=== PATIENT | male | born 1995 | race Caucasian/White ===

== ENCOUNTER 2020-12-30 14:25 | Emergency (ER) | payer OTHER ==
[2020-12-30 14:30] VITALS: TEMP 98.2; BMI 25.4
[2020-12-30] MEDS ORDERED: METOCLOPRAMIDE HCL INJECTION 10 MG/2 ML VIAL IVPUSH ONE (15:10)
[2020-12-30] MEDS ORDERED: SODIUM CHLORIDE 1,000 ML IV STA (15:10)
[2020-12-30 15:52] LABS: BASO % 0.6 % (0-2.0); EOS % 0.4 % (0-4.5); HEMATOCRIT 46.7 % (35.4-49); HEMOGLOBIN 16.1 GM/dL (11.7-16.9); LYMPH % 20.8 % (8-40); MCH 29.6 pg (25.7-33.7); MCHC 34.5 g/dl (32.0-35.9); MEAN CELL VOLUME 85.9 fl (80-96); MEAN PLT VOLUME 9.2 fl (7.5-11.1); MONO % 8.3 % (3.8-10.2); NEUT % 69.9 % (42.8-82.8); PLATELET COUNT 193 K/MM3 (134-434); RBC 5.43 M/mm3 (4.00-5.60); WHITE BLOOD COUNT 8.9 K/mm3 (4.0-10.0)
[2020-12-30 17:25] LABS: URINE APPEARANCE CLEAR; URINE BILIRUBIN NEGATIVE (NEGATIVE); URINE COLOR YELLOW; URINE GLUCOSE (UA) NEGATIVE (NEGATIVE); URINE KETONE NEGATIVE (NEGATIVE); URINE LEUK ESTERASE NEGATIVE (NEGATIVE); URINE NITRITE NEGATIVE (NEGATIVE); URINE PROTEIN NEGATIVE (NEGATIVE); URINE UROBILINOGEN 0.2 mg/dL (0.2-1.0)
[2020-12-30 17:30] VITALS: BP 112/70; PULSE 79
== END 2020-12-30 17:44 | disposition home or self-care (01) ==
LOC: JER 14:25
PROC: 3E033NZ Introduction of Analgesics, Hypnotics, Sedatives into Peripheral Vein, Percutaneous Approach (ICD-10-PCS; principal; 2020-12-30)
PROC: 3E033GC Introduction of Other Therapeutic Substance into Peripheral Vein, Percutaneous Approach (ICD-10-PCS; 2020-12-30)
PROC: 3E0337Z Introduction of Electrolytic and Water Balance Substance into Peripheral Vein, Percutaneous Approach (ICD-10-PCS; 2020-12-30)
DX: H81.10 Benign paroxysmal vertigo, unspecified ear (principal)
CPT/HCPCS: 36415; 81003; 85025; 93005; 93010; 99285-25

== ENCOUNTER 2023-10-12 23:53 | Observation (INO) | payer OTHER ==
[2023-10-13] MEDS ORDERED: ACETAMINOPHEN INJECTION 100 ML IVPB ONE (01:32)
[2023-10-13] MEDS ORDERED: ONDANSETRON 4 MG/2 ML VIAL ONE (01:33)
[2023-10-13] MEDS ORDERED: FAMOTIDINE 20 MG/50 ML IVPB 20 MG/50 ML MG IVPB ONE (01:33)
[2023-10-13] MEDS: ACETAMINOPHEN 1000 MG/100 ML BAG IVPB ONE (01:40)
[2023-10-13] MEDS: LACTATED RINGERS SOLUTION 1000 ML INFUS.BAG IV ONE ×2 (01:40→05:38)
[2023-10-13] MEDS: ONDANSETRON 4 MG/2 ML VIAL IVPUSH ONE (01:40)
[2023-10-13] MEDS: FAMOTIDINE 20 MG/50 ML IVPB 20 MG/50 ML MG IVPB ONE (01:52)
[2023-10-13 02:05] LABS: BASO % 0.3 % (0-2.0); EOS % 0.5 % (0-4.5); HEMATOCRIT 53.8 % (35.4-49); HEMOGLOBIN 18.9 GM/dL (11.7-16.9); LYMPH % 16.5 % (8-40); MCH 29.6 pg (25.7-33.7); MCHC 35.1 g/dl (32.0-35.9); MEAN CELL VOLUME 84.3 fl (80-96); MEAN PLT VOLUME 8.9 fl (7.5-11.1); MONO % 8.2 % (3.8-10.2); NEUT % 74.5 % (42.8-82.8); PLATELET COUNT 275 10^3/uL (134-434); RBC 6.38 M/mm3 (4.00-5.60); RDW 13.3 % (11.9-15.9); WHITE BLOOD COUNT 16.4 K/mm3 (4.0-10.0)
[2023-10-13 02:08] LABS: EPI CELLS 6 /uL (0-25.1); HYALINE CASTS 1 /uL (0-3.1); PH,URINE 7.5 (5.0-8.0); URINE APPEARANCE CLEAR; URINE BACTERIA 7 /uL (0-1359); URINE BILIRUBIN 1+ (NEGATIVE); URINE COLOR ORANGE; URINE GLUCOSE (UA) NEGATIVE (NEGATIVE); URINE KETONE TRACE (NEGATIVE); URINE LEUK ESTERASE TRACE (NEGATIVE); URINE NITRITE NEGATIVE (NEGATIVE); URINE PROTEIN 1+ (NEGATIVE); URINE RBC 30 /uL (0-23.9); URINE WBC 6 /uL (0-25.8)
[2023-10-13 02:25] LABS: POTASSIUM 4.9 mmol/L (3.5-5.1)
[2023-10-13 02:27] LABS: ALBUMIN 4.6 g/dl (3.4-5.0); CALCIUM 10.3 mg/dL (8.5-10.1)
[2023-10-13 02:28] LABS: BLOOD UREA NITROGEN 14.9 mg/dL (7-18)
[2023-10-13 02:30] LABS: CREATININE 1.3 mg/dL (0.55-1.3)
[2023-10-13 02:32] LABS: BILIRUBIN,TOTAL 2.2 mg/dL (0.2-1); TOT PROT 8.5 g/dl (6.4-8.2)
[2023-10-13 05:17] LABS: BILIRUBIN,DIRECT 0.4 mg/dL (0.0-0.2)
[2023-10-13 07:11] VITALS: BMI 29.9
[2023-10-13] MEDS: LACTATED RINGERS SOLUTION 1,000 ML/1,000 ML INFUS.BAG IV SCH (08:34)
[2023-10-13 08:52] LABS: POTASSIUM 4.4 mmol/L (3.5-5.1)
[2023-10-13 08:54] LABS: CALCIUM 9.3 mg/dL (8.5-10.1)
[2023-10-13 08:55] LABS: BLOOD UREA NITROGEN 15.8 mg/dL (7-18); MAGNESIUM 2.1 mg/dL (1.8-2.4)
[2023-10-13 08:57] LABS: PHOSPHOROUS 4.5 mg/dL (2.5-4.9)
[2023-10-13 08:58] LABS: CREATININE 1.3 mg/dL (0.55-1.3)
[2023-10-13 08:59] LABS: BILIRUBIN,TOTAL 1.8 mg/dL (0.2-1); TOT PROT 6.7 g/dl (6.4-8.2)
[2023-10-13 09:01] LABS: ALBUMIN 3.5 g/dl (3.4-5.0)
[2023-10-13] MEDS: FAMOTIDINE 20 MG TABLET PO SCH (09:17)
[2023-10-13 10:29] LABS: BASO % 0.4 % (0-2.0); EOS % 0.8 % (0-4.5); HEMATOCRIT 44.6 % (35.4-49); HEMOGLOBIN 15.4 GM/dL (11.7-16.9); LYMPH % 21.6 % (8-40); MCH 29.4 pg (25.7-33.7); MCHC 34.5 g/dl (32.0-35.9); MEAN CELL VOLUME 85.4 fl (80-96); MEAN PLT VOLUME 9.3 fl (7.5-11.1); MONO % 8.7 % (3.8-10.2); NEUT % 68.5 % (42.8-82.8); PLATELET COUNT 215 10^3/uL (134-434); RBC 5.22 M/mm3 (4.00-5.60); RDW 13.2 % (11.9-15.9); RETICULOCYTES 2.46 % (0.5-1.5); WHITE BLOOD COUNT 13.7 K/mm3 (4.0-10.0)
[2023-10-13] MEDS: PANTOPRAZOLE 40 MG TABLET PO SCH (13:38)
[2023-10-13] MEDS: HEPARIN NA (PORCINE) 5,000 UNITS/ML 1ML VIAL SQ SCH (13:38)
[2023-10-14] MEDS: ACETAMINOPHEN 500 MG TABLET (FP) PO ONE (02:20)
[2023-10-14] MEDS: ONDANSETRON 4 MG/2 ML VIAL IVPUSH PRN (02:57)
[2023-10-14 05:53] VITALS: PULSE 84
[2023-10-14 07:49] LABS: BASO % 0.3 % (0-2.0); EOS % 1.1 % (0-4.5); HEMATOCRIT 44.4 % (35.4-49); HEMOGLOBIN 15.6 GM/dL (11.7-16.9); LYMPH % 25.2 % (8-40); MCHC 35.2 g/dl (32.0-35.9); MEAN CELL VOLUME 85.2 fl (80-96); MEAN PLT VOLUME 8.7 fl (7.5-11.1); MONO % 8.2 % (3.8-10.2); NEUT % 65.2 % (42.8-82.8); PLATELET COUNT 198 10^3/uL (134-434); RBC 5.21 M/mm3 (4.00-5.60); RDW 12.8 % (11.9-15.9); WHITE BLOOD COUNT 8.5 K/mm3 (4.0-10.0)
[2023-10-14 07:58] LABS: POTASSIUM 4.5 mmol/L (3.5-5.1)
[2023-10-14 08:03] LABS: CALCIUM 8.9 mg/dL (8.5-10.1)
[2023-10-14 08:04] LABS: ALBUMIN 3.6 g/dl (3.4-5.0); BLOOD UREA NITROGEN 7.6 mg/dL (7-18); MAGNESIUM 2.2 mg/dL (1.8-2.4)
[2023-10-14 08:06] LABS: CHOLESTEROL 153 mg/dL (50-200); CREATININE 1.1 mg/dL (0.55-1.3)
[2023-10-14 08:07] LABS: BILIRUBIN,DIRECT 0.3 mg/dL (0.0-0.2); LDL CHOLESTEROL (ONLY SJRH) 101 mg/dL (5-100)
[2023-10-14 08:08] LABS: BILIRUBIN,TOTAL 1.6 mg/dL (0.2-1); TOT PROT 6.6 g/dl (6.4-8.2)
[2023-10-14 08:09] LABS: HDL CHOLESTEROL 39 mg/dL (40-60)
[2023-10-14 14:23] VITALS: BP 124/74; RESP 20; TEMP 98.1
== END 2023-10-14 16:01 | disposition home or self-care (01) ==
LOC: JER 23:53 → JERBED 10-13 04:42 → J7W 10-13 05:53
PROVIDERS: ADMIT Internal Medicine; ATTEND Internal Medicine
PROC: 3E033NZ Introduction of Analgesics, Hypnotics, Sedatives into Peripheral Vein, Percutaneous Approach (ICD-10-PCS; principal; 2023-10-13)
PROC: 3E033GC Introduction of Other Therapeutic Substance into Peripheral Vein, Percutaneous Approach (ICD-10-PCS; 2023-10-13)
PROC: 3E0337Z Introduction of Electrolytic and Water Balance Substance into Peripheral Vein, Percutaneous Approach (ICD-10-PCS; 2023-10-13)
PROC: 3E033GC Introduction of Other Therapeutic Substance into Peripheral Vein, Percutaneous Approach (ICD-10-PCS; 2023-10-13)
DX: E86.0 Dehydration (principal); R19.7 Diarrhea, unspecified; R74.01 Elevation of levels of liver transaminase levels; K76.0 Fatty (change of) liver, not elsewhere classified; F41.9 Anxiety disorder, unspecified; K21.9 Gastro-esophageal reflux disease without esophagitis; R11.2 Nausea with vomiting, unspecified
CPT/HCPCS: 0241U-QW; 36415; 76705-TC; 80053; 80061; 81003; 82248; 83010; 83615; 83690; 83735; 84100; 85025; 85045; 86704; 86709; 86803; 87045; 87046; 87086; 87340; 87517; 93005; 93010; 99285-25; G0378; J0131; J1644

== ENCOUNTER 2024-01-08 13:54 | Emergency (ER) | payer OTHER ==
[2024-01-08 14:04] VITALS: BP 125/65; PULSE 106; RESP 16; TEMP 98.4; BMI 25.0
[2024-01-08] MEDS ORDERED: IBUPROFEN 600 MG TABLET (FP) PO ONE (15:42)
[2024-01-08] MEDS: IBUPROFEN 600 MG TABLET (FP) PO ONE (15:46)
== END 2024-01-08 15:53 | disposition home or self-care (01) ==
LOC: JERFT 13:54
DX: M54.2 Cervicalgia (principal); W22.8XXA Striking against or struck by other objects, initial encounter
CPT/HCPCS: 99283-25

== ENCOUNTER 2024-03-04 10:38 | Emergency (ER) | payer OTHER ==
[2024-03-04 10:50] VITALS: BMI 23.6
[2024-03-04] MEDS ORDERED: METOCLOPRAMIDE HCL INJECTION 10 MG/2 ML VIAL ONE (11:46)
[2024-03-04] MEDS: METOCLOPRAMIDE HCL INJECTION 10 MG/2 ML VIAL IVPB ONE (11:54)
[2024-03-04] MEDS: SODIUM CHLORIDE 0.9% 500 ML INFUS.BAG IV ONE ×2 (11:54→13:54)
[2024-03-04] MEDS: ONDANSETRON 4 MG/2 ML VIAL IVPUSH ONE ×2 (11:54→13:54)
[2024-03-04 12:07] LABS: BASO % 0.2 % (0-2.0); EOS % 0.2 % (0-4.5); HEMATOCRIT 45.6 % (35.4-49); LYMPH % 9.2 % (8-40); MCH 29.5 pg (25.7-33.7); MEAN CELL VOLUME 84.1 fl (80-96); MONO % 4.8 % (3.8-10.2); NEUT % 85.6 % (42.8-82.8); PLATELET COUNT 177 10^3/uL (134-434); RBC 5.42 M/mm3 (4.00-5.60); RDW 13.2 % (11.9-15.9); WHITE BLOOD COUNT 10.6 K/mm3 (4.0-10.0)
[2024-03-04 12:24] LABS: POTASSIUM 3.5 mmol/L (3.5-5.1)
[2024-03-04 12:26] LABS: ALBUMIN 4.3 g/dl (3.4-5.0); BLOOD UREA NITROGEN 16.3 mg/dL (7-18); CALCIUM 9.4 mg/dL (8.5-10.1)
[2024-03-04 12:30] LABS: CREATININE 1.2 mg/dL (0.55-1.3)
[2024-03-04 12:31] LABS: BILIRUBIN,TOTAL 1.2 mg/dL (0.2-1); TOT PROT 7.3 g/dl (6.4-8.2)
[2024-03-04 13:16] LABS: URINE APPEARANCE CLEAR; URINE BILIRUBIN NEGATIVE (NEGATIVE); URINE COLOR YELLOW; URINE GLUCOSE (UA) NEGATIVE (NEGATIVE); URINE KETONE NEGATIVE (NEGATIVE); URINE LEUK ESTERASE NEGATIVE (NEGATIVE); URINE NITRITE NEGATIVE (NEGATIVE); URINE PROTEIN NEGATIVE (NEGATIVE); URINE UROBILINOGEN 0.2 mg/dL (0.2-1.0)
[2024-03-04] MEDS ORDERED: MECLIZINE HCL 25 MG TABLET (FP) ONE (13:41)
[2024-03-04] MEDS: MECLIZINE HCL 25 MG TABLET (FP) PO ONE (13:49)
[2024-03-04] MEDS ORDERED: ONDANSETRON 4 MG/2 ML VIAL ONE (13:52)
[2024-03-04 15:22] VITALS: BP 127/76; PULSE 79; RESP 17; TEMP 98.6
== END 2024-03-04 16:16 | disposition home or self-care (01) ==
LOC: JER 10:38
PROC: 3E033GC Introduction of Other Therapeutic Substance into Peripheral Vein, Percutaneous Approach (ICD-10-PCS; principal; 2024-03-04)
PROC: 3E033GC Introduction of Other Therapeutic Substance into Peripheral Vein, Percutaneous Approach (ICD-10-PCS; 2024-03-04)
PROC: 3E033GC Introduction of Other Therapeutic Substance into Peripheral Vein, Percutaneous Approach (ICD-10-PCS; 2024-03-04)
DX: R42 Dizziness and giddiness (principal); R11.2 Nausea with vomiting, unspecified
CPT/HCPCS: 36415; 80053; 81003; 85025; 87086; 99284-25

== ENCOUNTER 2024-12-24 12:11 | Emergency (ER) | payer OTHER ==
[2024-12-24 12:26] VITALS: BP 125/60; PULSE 67; RESP 18; TEMP 98.4
== END 2024-12-24 15:13 | disposition home or self-care (01) ==
LOC: JERFT 12:11
DX: M54.41 Lumbago with sciatica, right side (principal); M51.360 Other intervertebral disc degeneration, lumbar region with discogenic back pain only
CPT/HCPCS: 72100-TC-FY; 99283-25